=== PATIENT | male | born 1955 | race Caucasian/White ===

== ENCOUNTER 2019-02-05 12:08 | Inpatient (IN) | payer OTHER ==
[2019-02-05] MEDS ORDERED: ONDANSETRON 4 MG/2 ML VIAL ONE (12:42)
[2019-02-05] MEDS ORDERED: FAMOTIDINE 20 MG/2 ML VIAL IV ONE (12:42)
[2019-02-05] MEDS ORDERED: NA CHLORIDE 0.9% 1,000 ML ONE ×2 (12:42→14:36)
[2019-02-05 12:49] LABS: Absolute Lymphocytes (CBC) 1.6 K/uL (0.7-4.9); Basophils % 0.3 % (0-1.3); Eosinophils % 3.5 % (0-4.4); Hematocrit 48.3 % (39.6-49.0); Lymphocytes % 12.9 % (15.3-44.8); MPV 8.2 fL (7.6-11.3); Monocytes % 5.3 % (3.3-12.3); RBC Red Blood Cell Count 5.21 M/uL (4.33-5.43)
[2019-02-05 13:02] LABS: ALT/SGPT 23 U/L (12-78); AST/SGOT 24 U/L (15-37); Albumin 4.1 g/dL (3.4-5.0); Alkaline Phosphatase 81 U/L (45-117); BUN Blood Urea Nitrogen 12 mg/dL (7-18); Bicarbonate 26 mmol/L (21-32); Bilirubin Direct 0.1 mg/dL (0-0.2); Bilirubin Total 0.6 mg/dL (0.2-1.0); Glucose Level 112 mg/dL (74-106); Lipase 59 U/L (73-393); Potassium 3.8 mmol/L (3.5-5.1); Protein, Total 7.8 g/dL (6.4-8.2); Sodium Level 142 mmol/L (136-145); Troponin (Emerg Dept Use Only) < 0.02 ng/mL (0.0-0.045)
--- NOTE | 2019-02-05 13:36 | RAD REPORT ---
EXAM DESCRIPTION: CTAbdomen Pelvis W Contrast - 02/05/2019 1:19 pm CLINICAL HISTORY: Abdominal pain. ABD PAIN COMPARISON: No comparisons TECHNIQUE: Biphasic CT imaging of the abdomen and pelvis was performed with 100 ml non-ionic IV cont rast. All CT scans are performed using dose optimization technique as appropriate and may include automated exposure control or mA/KV adjustment according to patient size. FINDINGS: The lung bases are clear. The liver, spleen, pancreas, adrenal glands and kidneys are within normal limits. Multiple dilated small bowel loops are present in the mid abdomen and upper abdomen likely representi ng a developing mechanical small-bowel obstruction. The loops are fluid-filled. A distinct point of t ransition is not discerned. Mild free fluid is seen in the pelvis. No pneumoperitoneum. The appendix is normal. No evidence of significant lymphadenopathy. No suspicious bony findings. IMPRESSION: [id number] developing mechanical small bowel obstruction suspected.
--- NOTE | 2019-02-05 14:08 | ER ---
Nurse's Notes [facility] Name: Patrick Ram Age: 63 yrs Sex: Male : 1955 Arrival Date: 02/05/2019 Time: 12:11 Bed 6 Private MD: Esa Mauricio T Diagnosis: Mechanical small bowel obstruction Presentation: 02/05 12:14 Presenting complaint: Patient states: last night i started having pain on my middle hj upper stomach, (epigastric area) and i felt bloated, pain is 8/10; reports N/V; denies fever and chills; reports diarrhea;. Transition of care: patient was not received from another setting of care. Onset of symptoms was February 05, 2019. Risk Assessment: Do you want to hurt yourself or someone else? Patient reports no desire to harm self or others. Initial Sepsis Screen: Does the patient meet any 2 criteria? No. Patient's initial sepsis screen is negative. Does the patient have a suspected source of infection? No. Patient's initial sepsis screen is negative. Care prior to arrival: None. 12:14 Method Of Arrival: Ambulatory 12:14 Acuity: MAINE 3 hj Historical: - Allergies: 12:15 No Known Allergies; hj - PMHx: 12:18 Hyperlipidemia; hj - PSHx: 12:15 Knee surgery; hj - Immunization history:: Adult Immunizations up to date. - Social history:: Smoking status: Patient/guardian denies using tobacco. - Ebola Screening: : No symptoms or risks identified at this time. Screenin:36 Abuse screen: Denies threats or abuse. Denies injuries from another. Nutritional hb screening: No deficits noted. Tuberculosis screening: No symptoms or risk factors identified. Fall Risk None identified. Assessment: 12:37 General: Appears in no apparent distress. Behavior is calm, cooperative. Pain: Pain hb currently is 6 out of 10 on a pain scale. Neuro: Level of Consciousness is awake, alert, obeys commands, Oriented to person, place, time, situation. Cardiovascular: Capillary refill < 3 seconds Patient's skin is warm and dry. Respiratory: Airway is patent Respiratory effort is even, unlabored, Respiratory pattern is regular, symmetrical, Breath sounds are clear bilaterally. GI: Abdomen is non-distended, Bowel sounds present X 4 quads. Abd is soft X 4 quads Abd is non tender X 4 quads. : No signs and/or symptoms were reported regarding the genitourinary system. EENT: No signs and/or symptoms were reported regarding the EENT system. Derm: Skin is intact, is healthy with good turgor. Musculoskeletal: No signs and/or symptoms reported regarding the musculoskeletal system. 14:44 Reassessment: orders received to administer ativan as ordered then wait 20 mins then sg attempt to insert the NG tube. 15:30 Reassessment: Patient appears in no apparent distress at this time. Patient and/or sg family updated on plan of care and expected duration. Pain level reassessed. Patient is alert, oriented x 3, equal unlabored respirations, skin warm/dry/pink. pt reports pain when swallowing, Marcella MADRIDP notified, v/o received to administer 15 mL Viscous Lidocaine, pt tolerated well, reports decrease in throat discomfort. 16:35 Reassessment: NG Tube advanced under the direction of Marcella MELÉNDEZ per radiographic sg imaging post insertion. pt to be admitted to room 213, pt and pt family stated understanding. 17:04 Reassessment: Patient appears in no apparent distress at this time. Patient and/or sg family updated on plan of care and expected duration. Pain level reassessed. pt and pt family updated that report will be called when receiving nurse is available, awaiting a call back at this time, will continue to monitor. Vital Signs: 12:15 BP 115 / 77; Pulse 88; Resp 18; Temp 97.5(O); Pulse Ox 100% on R/A; Weight 88.45 kg; Height 6 ft. 0 in. (182.88 cm); Pain 7/10; 13:20 BP 110 / 72; Pulse 69; Resp 17; Pulse Ox 99% on R/A; sg 15:17 BP 112 / 70; Pulse 58; Resp 17 S; Pulse Ox 98% on R/A; sg 17:40 BP 110 / 70; Pulse 60; Resp 17; Temp 97.5; Pulse Ox 99% on R/A; Pain 4/10; sg 12:15 Body Mass Index 26.45 (88.45 kg, 182.88 cm) ED Course: 12:11 Patient arrived in ED. mr 12:12 Esa Mauricio MD is Private Physician. mr 12:15 Triage completed. hj 12:15 Arm band placed on left wrist. hj 12:19 Adelita Carrera [facility]NP-C [facility]. kb 12:19 Maik Robertson MD is Attending Physician. kb 12:26 Harper Poe, RN is Primary Nurse. hb 12:32 Inserted saline lock: 20 gauge in right antecubital area, using aseptic technique. hb Blood collected. 12:36 Patient has correct armband on for positive identification. Placed in gown. Bed in low hb position. Call light in reach. Side rails up X 1. 12:42 Basic Metabolic Panel Sent. hb 13:19 CT Abd/Pelvis - IV Contrast Only In Process Unspecified. EDMS 14:08 Estefany Flores MD is Hospitalizing Provider. kb 14:15 Consulted physician to see patient. . sg 14:38 Mik Downs MD is Hospitalizing Provider. kb 15:10 NGT: inserted 18 Fr. via right nare. verified return of gastric contents, to sg intermittent suction. Returned gastric contents. Returned bright red blood. Amount of gastric contents removed by suction 150ml. Patient tolerated well. inserted by Harper BROCK. 15:40 X-ray completed. Portable x-ray completed in exam room. Patient tolerated procedure mh1 well. 16:35 No provider procedures requiring assistance completed. Patient admitted, IV remains in sg place. intact, No redness/swelling at site. Administered Medications: 12:40 Drug: NS 0.9% 1000 ml Route: IV; Rate: 1000 ml; Site: right antecubital; hb 13:45 Follow up: Response: No adverse reaction; IV Status: Completed infusion; IV Intake: sg 990ml 12:40 Drug: Zofran 4 mg Route: IVP; Site: right antecubital; hb 13:25 Follow up: Response: No adverse reaction; Nausea is decreased sg 12:40 Drug: Pepcid 20 mg Route: IVP; Site: right antecubital; hb 13:25 Follow up: Response: No adverse reaction sg 14:40 Drug: Ativan 0.5 mg Route: IVP; Site: right antecubital; sg 15:10 Follow up: Response: No adverse reaction; administered prior to insertion of NG tube sg 15:00 Drug: NS 0.9% 1000 ml Route: IV; Rate: 125 ml/hr; Site: right antecubital; sg 15:00 Drug: Rocephin 1 grams Route: IV; Rate: calculated rate; Site: right antecubital; sg 15:20 Follow up: Response: No adverse reaction; IV Status: Completed infusion sg 15:05 Drug: Flagyl 500 mg Volume: 100 ml; Route: IVPB; Rate: 200 ml/hr; Infused Over: 30 sg mins; Site: right antecubital; 15:40 Follow up: Response: No adverse reaction; IV Status: Completed infusion; IV Intake: sg 100ml Intake: 13:45 IV: 990ml; Total: 990ml. sg 15:40 IV: 100ml; Total: 1090ml. sg Output: 17:45 Gastric: 800ml (NGT); Total: 800ml. sg Outcome: 14:08 Decision to Hospitalize by Provider. kb 18:10 Admitted to Tele accompanied by tech, family with patient, via stretcher, room 213, sg with chart, Report called to DELMY ALVA 18:10 Condition: stable 18:10 Instructed on the need for admit, safety practices, Demonstrated understanding of instructions. 18:13 Patient left the ED. sg Signatures: Dispatcher [employer] Adelita Rouse, SILAS MELÉNDEZ-Gio Steiner RN RN PappasAdrianne mr ScottLeah [facility] Alberto Courtney, RN DELMY Harper Poe RN RN Corrections: (The following items were deleted from the chart) 12:18 12:15 PMHx: None; [facility] 14:11 12:14 Presenting complaint: Patient states: last night i started having pain on my hj middle upper stomach, (epigastric area) and i fell bloated, pain is 8/10; reports N/V; denies fever and chills; reports diarrhea; 16:37 16:35 Reassessment: NG Tube advanced under the direction of Marcella MELÉNDEZ per sg radiographic imaging post insertion. pt to be admitted to room 216, pt and pt family stated understanding sg
--- NOTE | 2019-02-05 14:08 | EDPHYS ---
Physician Documentation [facility] Name: Patrick Ram Age: 63 yrs Sex: Male : 1955 Arrival Date: 02/05/2019 Time: 12:11 Bed 6 Private MD: Esa Mauricio T ED Physician Maik Robertson HPI: 02/05 12:47 This 63 yrs old Male presents to ER via Ambulatory with complaints of kb Abdominal Pain, Vomiting. 12:47 The patient presents with abdominal pain in the epigastric area. Onset: The kb symptoms/episode began/occurred last night. The symptoms do not radiate. Associated signs and symptoms: Pertinent positives: nausea, vomiting, and diarrhea. The symptoms are described as constant. Modifying factors: The symptoms are alleviated by nothing, the symptoms are aggravated by nothing. Severity of pain: At its worst the pain was moderate in the emergency department the pain is unchanged. The patient has not experienced similar symptoms in the past. The patient has not recently seen a physician. Pt reports he started having upper abd pain last night, had diarrhea once at [address] and vom[address] once [address] the way here. Denies fever, chest pain. States he has never had this before. . Historical: - Allergies: 12:15 No Known Allergies; hj - PMHx: 12:18 Hyperlipidemia; hj - PSHx: 12:15 Knee surgery; hj - Immunization history:: Adult Immunizations up to date. - Social history:: Smoking status: Patient/guardian denies using tobacco. - Ebola Screening: : No symptoms or risks identified at this time. ROS: 12:46 Constitutional: Negative for fever, chills, and weight loss, Cardiovascular: Negative kb for chest pain, palpitations, and edema, Respiratory: Negative for shortness of breath, cough, wheezing, and pleuritic chest pain, Back: Negative for injury and pain, : Negative for injury, bleeding, discharge, and swelling, MS/Extremity: Negative for injury and deformity, Skin: Negative for injury, rash, and discoloration, Neuro: Negative for headache, weakness, numbness, tingling, and seizure. 12:46 Abdomen/GI: Positive for abdominal pain, nausea, vomiting, and diarrhea, Negative for constipation, abdominal cramps, abdominal distension, anorexia. Exam: 12:46 Constitutional: This is a well developed, well nourished patient who is awake, alert, kb and in no acute distress. Head/Face: Normocephalic, atraumatic. ENT: Nares patent. No nasal discharge, no septal abnormalities noted. Tympanic membranes are normal and external auditory canals are clear. Oropharynx with no redness, swelling, or masses, exudates, or evidence of obstruction, uvula midline. Mucous membranes moist. Neck: Trachea midline, no thyromegaly or masses palpated, and no cervical lymphadenopathy. Supple, full range of motion without nuchal rigidity, or vertebral point tenderness. No Meningismus. Chest/axilla: Normal chest wall appearance and motion. Nontender with no deformity. No lesions are appreciated. Cardiovascular: Regular rate and rhythm with a normal S1 and S2. No gallops, murmurs, or rubs. Normal PMI, no JVD. No pulse deficits. Respiratory: Lungs have equal breath sounds bilaterally, clear to auscultation and percussion. No rales, rhonchi or wheezes noted. No increased work of breathing, no retractions or nasal flaring. Abdomen/GI: Soft, non-tender, with normal bowel sounds. No distension or tympany. No guarding or rebound. No evidence of tenderness throughout. Back: No spinal tenderness. No costovertebral tenderness. Full range of motion. Skin: Warm, dry with normal turgor. Normal color with no rashes, no lesions, and no evidence of cellulitis. MS/ Extremity: Pulses equal, no cyanosis. Neurovascular intact. Full, normal range of motion. Neuro: Awake and alert, GCS 15, oriented to person, place, time, and situation. Cranial nerves II-XII grossly intact. Motor strength 5/5 in all extremities. Sensory grossly intact. Cerebellar exam normal. Normal gait. Vital Signs: 12:15 BP 115 / 77; Pulse 88; Resp 18; Temp 97.5(O); Pulse Ox 100% on R/A; Weight 88.45 kg; hj Height 6 ft. 0 in. (182.88 cm); Pain 7/10; 13:20 BP 110 / 72; Pulse 69; Resp 17; Pulse Ox 99% on R/A; sg 15:17 BP 112 / 70; Pulse 58; Resp 17 S; Pulse Ox 98% on R/A; sg 17:40 BP 110 / 70; Pulse 60; Resp 17; Temp 97.5; Pulse Ox 99% on R/A; Pain 4/10; sg 12:15 Body Mass Index 26.45 (88.45 kg, 182.88 cm) hj MDM: 12:19 Patient medically screened. kb 12:47 Data reviewed: vital signs, nurses notes. Data interpreted: Pulse oximetry: on room air kb is 100 %. Interpretation: normal. 13:54 Counseling: I had a detailed discussion with the patient and/or guardian regarding: the kb historical points, exam findings, and any diagnostic results supporting the discharge/admit diagnosis, lab results, radiology results, the need for further work-up and treatment in the hospital. 14:25 ED course: COnsulted Dr. Downs, is going to look at CT scan and come see patient. . rn 02/05 12:24 Order name: Basic Metabolic Panel kb 02/05 12:24 Order name: CBC with Diff; Complete Time: 12:55 kb 02/05 12:24 Order name: Hepatic Function; Complete Time: 13:04 kb 02/05 12:24 Order name: Lipase; Complete Time: 13:04 kb 02/05 12:24 Order name: Troponin (emerg Dept Use Only); Complete Time: 13:04 kb 02/05 12:26 Order name: Basic Metabolic Panel; Complete Time: 13:04 EDMS 02/05 12:24 Order name: CT Abd/Pelvis - IV Contrast Only; Complete Time: 13:38 kb 02/05 14:43 Order name: Urine Dipstick--Ancillary (enter results) bd 02/05 15:07 Order name: CXR XRAY bd 02/05 15:49 Order name: Urine Dipstick-Ancillary; Complete Time: 16:07 EDMS 02/05 16:23 Order name: RAD; Complete Time: 16:24 EDMS 02/05 12:24 Order name: IV Saline Lock; Complete Time: 12:41 kb 02/05 12:24 Order name: Labs collected and sent; Complete Time: 12:42 kb 02/05 12:24 Order name: EKG; Complete Time: 12:27 kb 02/05 12:24 Order name: EKG - Nurse/Tech; Complete Time: 12:42 kb 02/05 14:05 Order name: NG Tube; Complete Time: 15:13 ss 02/05 14:15 Order name: CONS Physician Consult EDMS Administered Medications: 12:40 Drug: NS 0.9% 1000 ml Route: IV; Rate: 1000 ml; Site: right antecubital; hb 13:45 Follow up: Response: No adverse reaction; IV Status: Completed infusion; IV Intake: sg 990ml 12:40 Drug: Zofran 4 mg Route: IVP; Site: right antecubital; hb 13:25 Follow up: Response: No adverse reaction; Nausea is decreased sg 12:40 Drug: Pepcid 20 mg Route: IVP; Site: right antecubital; hb 13:25 Follow up: Response: No adverse reaction sg 14:40 Drug: Ativan 0.5 mg Route: IVP; Site: right antecubital; sg 15:10 Follow up: Response: No adverse reaction; administered prior to insertion of NG tube sg 15:00 Drug: NS 0.9% 1000 ml Route: IV; Rate: 125 ml/hr; Site: right antecubital; sg 15:00 Drug: Rocephin 1 grams Route: IV; Rate: calculated rate; Site: right antecubital; sg 15:20 Follow up: Response: No adverse reaction; IV Status: Completed infusion sg 15:05 Drug: Flagyl 500 mg Volume: 100 ml; Route: IVPB; Rate: 200 ml/hr; Infused Over: 30 sg mins; Site: right antecubital; 15:40 Follow up: Response: No adverse reaction; IV Status: Completed infusion; IV Intake: sg 100ml Disposition: 02/06 07:03 Co-signature as Attending Physician, Maik Robertson MD. rn Disposition: 02/05/19 14:08 Hospitalization ordered by Mik Downs for Inpatient Admission. Preliminary diagnosis is Mechanical small bowel obstruction. - Bed requested for Telemetry/MedSurg (Inpatient). - Status is Inpatient Admission. sg - Condition is Stable. - Problem is new. - Symptoms are unchanged. UTI on Admission? No Signatures: Dispatcher [employer] EDMS Adelita Carrera, SILAS MELÉNDEZ-Brea Snell RN RN dw Gay, Steven, RN RN Maik Robertsno MD MD rn Smirch, Shelby, RN RN Alberto Courtney RN RN Harper Poe RN RN hb Corrections: (The following items were deleted from the chart) 02/05 12:18 12:15 PMHx: None; hj hj 14:38 14:08 Hospitalization Ordered by Estefany Flores MD for Inpatient Admission. Preliminary kb diagnosis is Mechanical small bowel obstruction. Bed requested for Telemetry/MedSurg (Inpatient). Status is Inpatient Admission. Condition is Stable. Problem is new. Symptoms are unchanged. UTI on Admission? No. kb 16:22 14:38 02/05/2019 14:08 Hospitalization Ordered by Mik Downs MD for Inpatient dw Admission. Preliminary diagnosis is Mechanical small bowel obstruction. Bed requested for Telemetry/MedSurg (Inpatient). Status is Inpatient Admission. Condition is Stable. Problem is new. Symptoms are unchanged. UTI on Admission? No. kb 18:13 16:22 02/05/2019 14:08 Hospitalization Ordered by Mik Downs MD for Inpatient sg Admission. Preliminary diagnosis is Mechanical small bowel obstruction. Bed requested for Telemetry/MedSurg (Inpatient). Status is Inpatient Admission. Condition is Stable. Problem is new. Symptoms are unchanged. UTI on Admission? No. dw
[2019-02-05] MEDS ORDERED: CEFTRIAXONE/SWI 1gm 1 GM/10 ML SYR ONE (14:36)
[2019-02-05] MEDS ORDERED: METRONIDAZOLE 500mg IVPB 500 MG/100 ML BAG IV ONE (14:36)
[2019-02-05] MEDS ORDERED: LORazepam 2 MG/ML VIAL ONE (14:36)
[2019-02-05] MEDS ORDERED: LIDOCAINE VISCOUS 2% SOLN 15 ML UDC ONE (15:27)
[2019-02-05 15:47] LABS: Urine Blood 1+ (NEG); Urine Glucose NEGATIVE (NEG); Urine Protein NEGATIVE (NEG); Urine Specific Gravity <1.005 (1.005-1.030)
--- NOTE | 2019-02-05 16:19 | RAD REPORT ---
EXAM DESCRIPTION: RAD - Chest Single View - 02/05/2019 3:42 pm CLINICAL HISTORY: NG tube placement, abdominal pain COMPARISON: None. TECHNIQUE: AP portable chest image was obtained 1530 hours . FINDINGS: Tip of the NG tube is in the proximal stomach. The side port of the NG tube is still in th e distal esophagus.
[2019-02-05] MEDS ORDERED: ACETAMINOPHEN 500 MG TAB PO PRN (18:51)
[2019-02-05] MEDS ORDERED: MORPHINE 4 MG/ML SYR IV PRN (18:51)
[2019-02-05] MEDS ORDERED: ONDANSETRON 4 MG/2 ML VIAL IV PRN (18:51)
[2019-02-05] MEDS: NA CHLORIDE 0.9% 1,000 ML IV SCH (19:00)
[2019-02-05] MEDS ORDERED: CEFOXITIN SODIUM 1 GM/VIAL ONE (20:53)
[2019-02-05] MEDS: CEFOXITIN SODIUM 1 GM/VIAL IVPB SCH (21:14)
[2019-02-05] MEDS: ZOLPIDEM TARTRATE 10 MG TABLET PO PRN (21:14)
[2019-02-05] MEDS ORDERED: NA CHLORIDE 0.9% 50 ML ONE (21:18)
[2019-02-06] MEDS: CEFOXITIN SODIUM 1 GM/VIAL IVPB SCH ×2 (00:12→06:00)
[2019-02-06] MEDS ORDERED: NA CHLORIDE 0.9% 50 ML ONE (00:16)
--- NOTE | 2019-02-06 00:46 | HP ---
Date of Admission: 02/05/2019 Reason For Admission: Abdominal pain. History Of Present Illness: The patient is a 63-year-old gentleman, who came in with acute onset of abdominal pain starting last night in the epigastrium associated with nausea and vomiting, had 2 epis odes of diarrhea this morning, passed gas this morning, feels better after coming to the hospital, ybarra d a large vomit when he was leaving his house, but prior to coming to the emergency room. The patien t never had symptoms like this before and his CAT scan showed possible small bowel obstruction, so I was consulted and come to see the patient in the ER. He is awake, alert, in no distress at this time . Review of Systems: No sore throat, runny nose, cough, headaches, or dizziness. No chest pain. Review of systems is oth erwise unremarkable. Past Medical History: Hyperlipidemia. Past Surgical History: Knee surgery. Allergies: NO ALLERGIES. Social History: He does not smoke. Denies drinking. Family History: Noncontributory. Physical Examination: Vital Signs: Stable. He is afebrile. General: He is awake, alert, and oriented x3. Head and Neck: Cranial nerves II through XII are grossly within normal limits. No neck masses. No JVD. Throat clear. Neck is supple. Chest: Clear. Heart: S1, S2. Abdomen: Soft, nondistended, nontender. Positive bowel sounds. Extremities: Neurovascularly intact. Neurologic: Nonfocal. Laboratory Data: White count is 12.3 with a left shift. Glucose is 112, chloride is 108, CO2 is 26. LFTs and lipase within normal limits. CT of the abdomen and pelvis reviewed with Dr. Jackson, which b asically shows [id number] developing mechanical small bowel obstruction suspected, no discrete point seen, no other significant findings. Assessment: Small bowel obstruction, likely incomplete, may be gastroenteritis. Recommendation: Admit n.p.o., IV fluid, IV antibiotic. Parenteral pain management. NG tube. Seria l abdominal exams. Follow laboratory data. We will get an x-ray tomorrow morning and we will make f urther recommendations as the case develops. At this time, the patient does not require any acute fontanez rgical intervention. /MODL Voice ID: [id number]
[2019-02-06] MEDS: METRONIDAZOLE 500mg IVPB 500 MG/100 ML BAG IV SCH ×3 (00:57→17:31)
[2019-02-06] MEDS: NA CHLORIDE 0.9% 1,000 ML IV SCH ×4 (03:27→23:29)
[2019-02-06 05:58] LABS: Absolute Lymphocytes (CBC) 1.5 K/uL (0.7-4.9); Basophils % 0.6 % (0-1.3); Eosinophils % 4.7 % (0-4.4); Lymphocytes % 15.7 % (15.3-44.8); MPV 8.2 fL (7.6-11.3); RBC Red Blood Cell Count 4.58 M/uL (4.33-5.43)
[2019-02-06] MEDS ORDERED: CEFOXITIN/SWI 1gm 1 GM/10 ML SYR ONE (06:08)
[2019-02-06 06:13] LABS: Potassium 4.2 mmol/L (3.5-5.1)
[2019-02-06] MEDS: CEFOXITIN/SWI 1gm 1 GM/10 ML SYR IV SCH ×3 (07:29→18:26)
--- NOTE | 2019-02-06 08:52 | RAD REPORT ---
EXAM DESCRIPTION: RAD - Abdomen Acute Series - 02/06/2019 7:02 am CLINICAL HISTORY: Small bowel obstruction COMPARISON: CT imaging February 05 FINDINGS: No new or progressive lung parenchymal process. Lung base atelectasis changes are present. Heart size and pulmonary vasculature are normal. No pleural effusion, pneumothorax or other acute ca rdiopulmonary process seen. NG tube is in place. Tip is in a decompressed stomach. Side port of the tubing is at the GE junction. Distended and mildly dilated small bowel loops are present similar or fractionally improved from the CT study. Air is present throughout the colon to the level of the rectum. Contrast from the CT study is collecting in the urinary bladder. No suspicious calcifications. No other suspicious for significant findings. IMPRESSION: Small bowel obstruction pattern showing slight improvement from the preceding day. No free air, pneumatosis or worrisome interval change.
--- NOTE | 2019-02-06 11:48 | PN ---
Date of Progress Note: 02/06/2019 The patient is awake, alert, no complaint, passing gas; however, no bowel movements. NG tube was put out less than 125 cc. Vital signs are stable. Afebrile. White count is normal. There is no left shift. Electrolytes are essentially within normal limits. Abdominal x-ray shows lots of air in the colon and the caliber of the small bowel has diminished but not normalized in size. Abdomen is soft, nondistended, nontender. Positive bowel sounds. Assessment: Partial small bowel obstruction, improving. Recommendations: We will discontinue the NG tube. Start him on clear liquids. The patient is clini deric doing well. If he tolerates it, hopefully home tomorrow. Continue IV fluids and antibiotics. /MODL Voice ID: [id number] Report ID: [id number]
--- NOTE | 2019-02-06 14:52 | EKG ---
Test Date: 2019-02-05 Test Time: 12:59:40 Business Office Coordinator: CANDACE MEASUREMENT RESULTS: Intervals: Rate: 50 SD: 200 QRSD: 94 QT: 452 QTc: 412 Jolon: P: 61 SD: 200 QRS: 78 T: 70 INTERPRETIVE STATEMENTS: Sinus bradycardia Otherwise normal ECG No previous ECG available for comparison Electronically Signed On 02-06-19 14:47:41 CDT by Derrek Tran
[2019-02-06] MEDS: ZOLPIDEM TARTRATE 10 MG TABLET PO PRN (20:40)
[2019-02-07] MEDS: METRONIDAZOLE 500mg IVPB 500 MG/100 ML BAG IV SCH ×2 (01:01→08:32)
[2019-02-07] MEDS: CEFOXITIN/SWI 1gm 1 GM/10 ML SYR IV SCH ×2 (01:01→05:09)
[2019-02-07] MEDS: NA CHLORIDE 0.9% 1,000 ML IV SCH ×2 (08:37→10:51)
--- NOTE | 2019-02-08 08:40 | DS ---
Date of Discharge: 02/07/2019 Admitting Diagnoses: 1.Partial small bowel obstruction. 2.Gastroenteritis. Discharge Diagnoses: 1.Partial small bowel obstruction. 2.Gastroenteritis. Hospital Course: The patient is a 63-year-old gentleman, who was admitted with nausea, vomiting, and abdominal pain. Workup revealed possible bowel obstruction. NG-tube was placed. He was made n.p.o . IV fluids and IV antibiotics were given. Serial abdominal exam. Follow up x-ray was performed. The patient clinically improved with passing gas and had a bowel movement today. We started on clear liquids yesterday. NG-tube was discontinued yesterday and today he is in no pain, ambulating, and t here is no fever. Bowels are stable. White count is normal. Therefore, the patient will be dischar ged home and his diet will be advanced to a full liquid. Disposition: Home. Condition: Stable. Discharge Instructions: Resume home medications and diet. Activity as tolerated. Follow up PCP. C ipro and Flagyl prescription given for 1 week. SUMAN/ESPERANZA Voice ID: [id number] Report ID: [id number]
== END 2019-02-07 12:35 | disposition home or self-care (01) | DRG 390 ==
LOC: ER 12:08 → ERHOLD 14:12 → 2ND 17:21
PROVIDERS: ADMIT Surgery; ATTEND Surgery
DX: K56.600 Partial intestinal obstruction, unspecified as to cause (principal); K52.9 Noninfective gastroenteritis and colitis, unspecified; E78.5 Hyperlipidemia, unspecified
CPT/HCPCS: 36415; 71045; 74022; 74177; 80048; 80076; 81003; 83690; 84484; 85025; 93005; 96361; 96365; 96375; 99285; J0694; J0696; J2405; J7030; Q9967

== ENCOUNTER 2023-02-15 14:05 | Emergency (ER) | payer OTHER ==
--- OUTSIDE RECORDS SUMMARY | 2023-02-15 14:08 | XMS REPORT | Continuity of Care Document ---
:1955 Author Organization [facility] Address [address] [place] [address] [place] [id number] Care Team Providers Name Role Phone PCP, PATIENT DOES NOT HAVE A Primary Care Physician Rogelio Magana RN, Samra Ha Attending Clinician Unavailable LEXUS PARKS Attending Clinician Unavailable Lexus Lopez Attending Clinician [phone] Payers Payer Name Policy Type Policy Number Effective Date Expiration Date S ource Problems Condition Condition Condition Status Onset Resolution Last Treating Co mments Source Name Details Category Date Date Treatment Clinician Date No known No known Disease Unive rs active active ity of problems problems [facility] Allergies, Adverse Reactions, Alerts Allergy Allergy Status Severity Reaction(s) Onset Inactive Treating Comm ents Source Name Type Date Date Clinician NO KNOWN Drug Active Univers ALLERGIE Class ity of [facility] Social History Social Habit Start Date Stop Date Quantity Comments Source Exposure to Not sure [facility] SARS-CoV-2 (event) Medica l Branch Tobacco use and 2021-09-13 2021-09-13 Never used [facility] exposure 00:00:00 00:00:00 [facility] Sex [birth year] [facility] 00:00:00 00:00:00 [facility] Smoking Status Start Date Stop Date Source Never smoker [facility] Medications Ordered Filled Start Stop Current Ordering Indication Dosage Frequency Signature Comments Components Source Medication Medication Date Date Medication? Clinician (SIG) Name Name amoxicillin Yes [id number] 1{tbl} Take 1 Univers -clavulanat 1-30 tablet by ity of e 00:00: mouth 2 [place] (AUGMENTIN) 00 (two) Medical 875-125 mg times Branch per tablet daily. amoxicillin Yes [id number] 1{tbl} Take 1 Univers -clavulanat 1-30 tablet by ity of e 00:00: mouth 2 [place] (AUGMENTIN) 00 (two) Medical 875-125 mg times Branch per tablet daily. montelukast Yes Univer s 10 mg 1-28 ity of tablet 00:00: [place] [facility] montelukast Yes Univer s 10 mg 1-28 ity of tablet 00:00: [place] [facility] pravastatin 2020-08 Yes Univer s 40 mg 2-27 ity of tablet 00:00: [place] [facility] zolpidem 10 2020-08 Yes Univer s mg tablet 2-27 ity of 00:00: [place] [facility] pravastatin 2020-08 Yes Univer s 40 mg 2-27 ity of tablet 00:00: [place] [facility] zolpidem 10 2020-08 Yes Univer s mg tablet 2-27 ity of 00:00: [place] [facility] Vital Signs Vital Name Observation Time Observation Value Comments Source Systolic blood 2021-09-13 17:06:00 115 mm[Hg] Univer sity of pressure [facility] Diastolic blood 2021-09-13 17:06:00 77 mm[Hg] Unive rsity of pressure [facility] Heart rate 2021-09-13 17:06:00 73 /min [facility] Body temperature 2021-09-13 17:06:00 36.72 [place] [facility] Respiratory rate 2021-09-13 17:06:00 18 /min [facility] Body height 2021-09-13 17:06:00 185.4 cm [facility] Body weight 2021-09-13 17:06:00 95.255 kg [facility] BMI 2021-09-13 17:06:00 27.71 kg/m2 [facility] Oxygen saturation in 2021-09-13 17:06:00 97 /min [facility] blood by [facility] Pulse oximetry Branch Procedures This patient has no known procedures. Encounters Start End Encounter Admission Attending Care Care Encounter Source Date/Time Date/Time Type Type Clinicians Facility Department ID 2021-09-14 2021-09-14 Letter Izzy KARIS [id number] Univers 00:00:00 00:00:00 (Out) Samra Ha TAMMI [id number] it y of [facility] [id number] Reza as [id number] [address] 2021-09-13 2021-09-13 Outpatient R [facility] [id number] Univers 13:00:00 16:03:29 Dimple [facility] it y of [facility] 2021-09-13 2021-09-13 Urgent [facility] [id number] Univers 13:00:00 13:20:[address] [facility] [id number] ity [facility] [id number] Reza as JASWINDER?BLEA [id number] Co simi [address] MEDICAL OFFICE BUILDING Results This patient has no known results.
[2023-02-15 14:50] LABS: Absolute Lymphocytes (CBC) 1.5 K/uL (0.7-4.9); Hematocrit 44.5 % (39.6-49.0); Lymphocytes % 15.8 % (15.3-44.8); MCV 92.1 fL (80-100); RBC Red Blood Cell Count 4.83 M/uL (4.33-5.43)
[2023-02-15] MEDS ORDERED: METOCLOPRAMIDE 10 MG/2mL INJ ONE (14:57)
[2023-02-15] MEDS ORDERED: FAMOTIDINE 20 MG/2 ML VIAL IV ONE (14:57)
[2023-02-15] MEDS ORDERED: NA CHLORIDE 0.9% 500 ML ONE (14:57)
[2023-02-15] MEDS ORDERED: DIPHENHYDRAMINE 50 MG/ML VIAL ONE (14:57)
[2023-02-15 14:59] LABS: MPV 7.6 fL (7.6-11.3)
[2023-02-15 15:02] LABS: Albumin 3.3 g/dL (3.4-5.0); Bilirubin Total 0.6 mg/dL (0.2-1.0); Protein, Total 7.3 g/dL (6.4-8.2)
--- NOTE | 2023-02-15 15:47 | RAD REPORT ---
EXAM DESCRIPTION: CT - Abdomen Pelvis W Contrast - 02/15/2023 3:18 pm CLINICAL HISTORY: abdominal pain COMPARISON: Abdomen Pelvis W Contrast dated 02/05/2019 TECHNIQUE: Thin cut axial CT imaging of the abdomen and pelvis was performed following intravenous a dministration of 100 mL Isovue 300. Multiplanar reformats were generated and reviewed. All CT scans are performed using dose optimization technique as appropriate and may include automated exposure control or mA/KV adjustment according to patient size. FINDINGS: No suspicious findings in the lung bases. The liver, spleen, adrenal glands, and pancreas show no suspicious findings. Gallbladder shows modera te distention, mucosal hyperenhancement, and mild pericholecystic fluid. No evidence of intra or extr ahepatic biliary ductal dilation. Symmetric renal function is seen with no hydronephrosis or suspicious renal mass. Dilated mid abdominal small bowel loops. Long segments of bowel wall thickening and transmural edema along the mid to distal aspect of the involved small bowel segments. Gradual transition to nondistend ed small bowel in the right flank, see coronal images 19-26/125. Fluid opacification along the more p roximal small bowel and the proximal colon. No free air, free fluid or inflammatory stranding. No her jeana, mass or bulky lymphadenopathy. The urinary bladder is without significant finding. No suspicious bony findings. IMPRESSION: Dilated mid abdominal small bowel with gradual transition to nondistended small bowel in the right flank, findings which suggest ileus. Long segments of bowel wall thickening and transmural edema along the mid to distal aspect of the inv olved small bowel, suggestive of infectious or inflammatory enteritis. Gallbladder distention with mucosal hyperenhancement and pericholecystic edema. This could be reactiv e or related to concomitant acute cholecystitis.
--- NOTE | 2023-02-15 16:22 | ER ---
Nurse's Notes [facility] Name: Patrick Ram Age: 67 yrs Sex: Male : 1955 Arrival Date: 02/15/2023 Time: 14:05 Bed 14 Private MD: Diagnosis: Ileus, unspecified;Other viral enteritis Presentation: 02/15 14:27 Chief complaint: Patient states: Epigastric pain with N/V/D x 2 days. Coronavirus jl7 screen: At this time, the client does not indicate any symptoms associated with coronavirus-19. Ebola Screen: No symptoms or risks identified at this time. Initial Sepsis Screen: Does the patient meet any 2 criteria? No. Patient's initial sepsis screen is negative. Does the patient have a suspected source of infection? No. Patient's initial sepsis screen is negative. Risk Assessment: Do you want to hurt yourself or someone else? Patient reports no desire to harm self or others. Onset of symptoms was February 13, 2023. 14:27 Method Of Arrival: Ambulatory [facility] 14:27 Acuity: MAINE 3 jl7 Triage Assessment: 14:29 General: Appears in no apparent distress. uncomfortable, Behavior is calm, cooperative, jl7 appropriate for age. Pain: Complains of pain in abdomen Pain currently is 6 out of 10 on a pain scale. at worst was 10 out of 10 on a pain scale. GI: Reports diarrhea, nausea, vomiting. Historical: - Allergies: 14:29 No Known Allergies; jl7 - Home Meds: 14:29 pravastatin oral [Active]; montelukast oral [Active]; Omeprazole Oral [Active]; jl7 Famotidine Oral [Active]; - PMHx: 14:29 Hyperlipidemia; jl7 - Immunization history:: Adult Immunizations up to date. - Social history:: Smoking status: Patient denies any tobacco usage or history of. Screenin:30 [facility] ED Fall Risk Assessment (Adult) History of falling in the last 3 months, kc6 including since admission No falls in past 3 months (0 pts) Confusion or Disorientation No (0 pts) Intoxicated or Sedated No (0 pts) Impaired Gait No (0 pts) Mobility Assist Device Used No (0 pt) Altered Elimination No (0 pt) Score/Fall Risk Level 0 - 2 = Low Risk Oriented to surroundings, Maintained a safe environment, Educated pt \T\ family on fall prevention, incl call for assistance when getting out of bed, Assessed \T\ reinforced patient's understanding of fall precautions, Hourly rounding (assess needs \T\ fall precautionary measures) done. Abuse screen: Denies threats or abuse. Denies injuries from another. Nutritional screening: No deficits noted. Tuberculosis screening: No symptoms or risk factors identified. Assessment: 14:30 General: Appears in no apparent distress. comfortable, Behavior is calm, cooperative, kc6 appropriate for age. Pain: Complains of pain in abdomen. Neuro: Level of Consciousness is awake, alert, obeys commands, Oriented to person, place, time, situation, Appropriate for age. Cardiovascular: Capillary refill < 3 seconds. Respiratory: Airway is patent Trachea midline Respiratory effort is even, unlabored, Respiratory pattern is regular, symmetrical. GI: Abdomen is flat, non-distended, Bowel sounds present X 4 quads. Abd is soft X 4 quads Reports diarrhea, nausea, vomiting. : No signs and/or symptoms were reported regarding the genitourinary system. EENT: No signs and/or symptoms were reported regarding the EENT system. Derm: No signs and/or symptoms reported regarding the dermatologic system. Skin is intact, is healthy with good turgor, Skin is pink, warm \T\ dry. Musculoskeletal: No signs and/or symptoms reported regarding the musculoskeletal system. Circulation, motion, and sensation intact. Capillary refill < 3 seconds, Range of motion: intact in all extremities. 16:40 Reassessment: DC HOME AMBULATORY. bp Vital Signs: 14:27 BP 110 / 75; Pulse 76; Resp 17; Temp 98.8; Pulse Ox 98% ; Weight 92.99 kg; Height 6 ft. jl7 1 in. ; Pain 6/10; 15:43 BP 101 / 77; Pulse 59; Resp 18 S; Pulse Ox 96% on R/A; kc6 14:27 Body Mass Index 27.05 (92.99 kg, 185.42 cm) jl7 14:27 Pain Scale: Adult [facility] ED Course: 14:07 Patient arrived in ED. ts1 14:10 Onesimo Colmenares PA is PHCP. jm 14:10 Zak Jean Baptiste MD is Attending Physician. [facility] 14:29 Triage completed. jl7 14:29 Arm band placed on right wrist. jl7 14:30 Patient has correct armband on for positive identification. Bed in low position. Call kc6 light in reach. Side rails up X 1. Adult w/ patient. 14:36 Radiology exam delayed due to IV insertion attempt and/or patient not having ls3 appropriate IV at this time. 14:40 CBC with Diff Sent. rs5 14:40 CMP Sent. rs5 14:40 Lipase Sent. rs5 14:40 Inserted saline lock: 20 gauge in right antecubital area, using aseptic technique. rs5 Blood collected. 14:46 Olga Crane, RN is Primary Nurse. kc6 15:19 CT Abd/Pelvis - IV Contrast Only In Process Unspecified. EDMS 16:40 No provider procedures requiring assistance completed. IV discontinued, intact, bp bleeding controlled, No redness/swelling at site. Pressure dressing applied. Administered Medications: 15:00 Drug: NS 0.9% IV 500 ml Route: IV; Rate: bolus; Site: right antecubital; kc6 16:40 Follow up: IV Status: Completed infusion; IV Intake: 500ml bp 15:00 Drug: diphenhydrAMINE IVP 12.5 mg Route: IVP; Site: right antecubital; kc6 15:44 Follow up: Response: No adverse reaction kc6 15:00 Drug: Famotidine IVP 20 mg Route: IVP; Site: right antecubital; kc6 15:44 Follow up: Response: No adverse reaction kc6 15:01 Drug: metoCLOPramide IVP 10 mg Route: IVP; Site: right antecubital; kc6 15:44 Follow up: Response: No adverse reaction; Nausea is decreased kc6 Medication: 14:32 VIS not applicable for this client. jl7 Intake: 16:40 IV: 500ml; Total: 500ml. bp Outcome: 16:21 Discharge ordered by . cristina 16:40 Discharged to home ambulatory. bp 16:40 Condition: stable 16:40 Discharge instructions given to patient, Instructed on discharge instructions, follow up and referral plans. medication usage, Demonstrated understanding of instructions, follow-up care, medications, Prescriptions given X 1. 16:41 Patient left the ED. bp Signatures: Dispatcher [employer] EDMS Onesimo Colmenares PA PA jmm Leal, Jahala, RN RN jl7 Esteban Rutledge, RN RN bp Joe Philippe ls3 Olga Crane RN RN kc6 Endy Carrillo rs5 Pretty Long PAS PAS ts1
--- NOTE | 2023-02-15 16:22 | EDPHYS ---
Physician Documentation [facility] Name: Patrick Ram Age: 67 yrs Sex: Male : 1955 Arrival Date: 02/15/2023 Time: 14:05 Bed 14 Private MD: ED Physician Zak Jean Baptiste HPI: 02/15 16:35 This 67 yrs old Male presents to ER via Ambulatory with complaints of Abdominal Pain, jmm Vomiting/Diarrhea. 16:35 The patient presents with abdominal pain. Onset: The symptoms/episode began/occurred jmm gradually, 2 day(s) ago. The symptoms do not radiate. Associated signs and symptoms: Pertinent positives: nausea and vomiting, diarrhea. The symptoms are described as achy. Modifying factors: The symptoms are alleviated by nothing, the symptoms are aggravated by nothing. The patient has not experienced similar symptoms in the past. Historical: - Allergies: 14:29 No Known Allergies; jl7 - Home Meds: 14:29 pravastatin oral [Active]; montelukast oral [Active]; Omeprazole Oral [Active]; jl7 Famotidine Oral [Active]; - PMHx: 14:29 Hyperlipidemia; jl7 - Immunization history:: Adult Immunizations up to date. - Social history:: Smoking status: Patient denies any tobacco usage or history of. ROS: 16:35 Constitutional: Negative for fever, chills, and weight loss, Cardiovascular: Negative jmm for chest pain, palpitations, and edema, Respiratory: Negative for shortness of breath, cough, wheezing, and pleuritic chest pain. 16:35 Abdomen/GI: Positive for abdominal pain, nausea and vomiting, diarrhea. 16:35 All other systems are negative. Exam: 16:35 Constitutional: This is a well developed, well nourished patient who is awake, alert, jmm and in no acute distress. Head/Face: atraumatic. Eyes: EOMI, no conjunctival erythema appreciated ENT: Moist Mucus Membranes Neck: Trachea midline, Supple Chest/axilla: Normal chest wall appearance and motion. Cardiovascular: Regular rate and rhythm. No edema appreciated Respiratory: Normal respirations, no respiratory distress appreciated 16:35 Back: Normal ROM Skin: General appearance color normal MS/ Extremity: Moves all extremities, no obvious deformities appreciated, no edema noted to the lower extremities Neuro: Awake and alert Psych: Behavior is normal, Mood is normal, Patient is cooperative and pleasant 16:35 Abdomen/GI: Inspection: abdomen appears normal, Bowel sounds: normal, Palpation: soft, mild abdominal tenderness, in the right upper quadrant, left upper quadrant, right lower quadrant and left lower quadrant. Vital Signs: 14:27 BP 110 / 75; Pulse 76; Resp 17; Temp 98.8; Pulse Ox 98% ; Weight 92.99 kg; Height 6 ft. jl7 1 in. ; Pain 6/10; 15:43 BP 101 / 77; Pulse 59; Resp 18 S; Pulse Ox 96% on R/A; kc6 14:27 Body Mass Index 27.05 (92.99 kg, 185.42 cm) [facility] 14:27 Pain Scale: Adult jl7 MDM: 14:26 Patient medically screened. [facility] 16:38 Differential diagnosis: bowel obstruction, cholecystitis, Cholelithiasis, [facility] diverticulitis, gastritis, Mesenteric ischemia or infarction, non-specific abd pain, pancreatitis, Peptic Ulcer Disease, Perf. Duodenal Ulcer, Perf. Gastric Ulcer. Data reviewed: vital signs, nurses notes, lab test result(s), radiologic studies, CT scan. Consideration of Admission/Observation Escalation of care including admission/observation considered. I considered the following discharge prescriptions or medication management in the emergency department Medications were administered in the Emergency Department. See MAR. Counseling: I had a detailed discussion with the patient and/or guardian regarding: the historical points, exam findings, and any diagnostic results supporting the discharge/admit diagnosis, the presence of at least one elevated blood pressure reading (>120/80) during this emergency department visit, radiology results, the need for outpatient follow up, the need for further work-up and treatment in the hospital. Response to treatment: the patient's symptoms have mildly improved after treatment. Refusal of service: The patient/guardian displays adequate decision making capability and despite a detailed discussion of alternatives, benefits, risks, and consequences refuses: Admission to the hospital for further work-up and treatment. ED course: I discussed admission due to ileus with the patient. Patient has a preference to follow-up with Dr. Phoenix tomorrow morning. Patient was given strict return precautions. Patient understood agrees plan of care. 02/15 14:27 Order name: CBC with Diff; Complete Time: 15:12 [facility] 02/15 14:27 Order name: CMP; Complete Time: 15:12 [facility] 02/15 14:27 Order name: Lipase; Complete Time: 15:12 [facility] 02/15 14:29 Order name: CT Abd/Pelvis - IV Contrast Only; Complete Time: 15:55 [facility] 02/15 14:27 Order name: IV Saline Lock; Complete Time: 14:40 [facility] 02/15 14:27 Order name: Labs collected and sent; Complete Time: 14:40 [facility] Administered Medications: 15:00 Drug: NS 0.9% IV 500 ml Route: IV; Rate: bolus; Site: right antecubital; kc6 16:40 Follow up: IV Status: Completed infusion; IV Intake: 500ml bp 15:00 Drug: diphenhydrAMINE IVP 12.5 mg Route: IVP; Site: right antecubital; kc6 15:44 Follow up: Response: No adverse reaction kc6 15:00 Drug: Famotidine IVP 20 mg Route: IVP; Site: right antecubital; kc6 15:44 Follow up: Response: No adverse reaction 6 15:01 Drug: metoCLOPramide IVP 10 mg Route: IVP; Site: right antecubital; kc6 15:44 Follow up: Response: No adverse reaction; Nausea is decreased kc6 Disposition: 21:10 Co-signature as Attending Physician, Zak Jean Baptiste MD I reviewed the patient's care rt provided by the Advanced Practice Provider and agree with the diagnosis and treatment plan. Disposition Summary: 02/15/23 16:21 Discharge Ordered Location: Home jm Condition: Stable [facility] Diagnosis - Ileus, unspecified jmm - Other viral enteritis [facility] Followup: [facility] - With: Private Physician - When: Tomorrow - Reason: Recheck today's complaints, Continuance of care, Re-evaluation by your physician Discharge Instructions: - Discharge Summary Sheet jm - Clear Liquid Diet, Adult jmm - Viral Gastroenteritis, Adult jmm - Ileus [facility] Forms: - Medication Reconciliation Form [facility] - Thank You Letter [facility] - Antibiotic Education [facility] - Prescription Opioid Use [facility] - [email or web address] [facility] Prescriptions: - ondansetron 4 mg Oral Tablet,disintegrating - take 1 tablet by ORAL route every 4-6 hours As needed as needed for nausea and jmm vomiting; 20 tablet; Refills: 0, Product Selection Permitted Signatures: Dispatcher [employer] Onesimo Paris PA PA jmm Leal, Jahala, RN RN jl7 Olga Crane RN RN kc6 Zak Jean Baptiste MD MD rt Esteban Rutledge RN bp
[2023-02-15 16:46] VITALS: TEMP 98.8
[2023-02-15 16:48] VITALS: BP 101/77; O2SAT 96
== END 2023-02-15 16:41 | disposition home or self-care (01) ==
LOC: ER 14:05
DX: A08.39 Other viral enteritis (principal); K56.7 Ileus, unspecified; E78.5 Hyperlipidemia, unspecified
CPT/HCPCS: 96361; 85025; 36415; 83690; 80053; 74177; 96375; 96374; 99284; Q9967; J2765; J1200; J7040